=== PATIENT | male | born 1980 | race Two or more races ===

== ENCOUNTER 2017-12-01 18:22 | Emergency (ER) | payer OTHER ==
[~2017-12-01] VITALS: Ht 175.3 cm; Wt 83.0 kg
[2017-12-01 18:28] VITALS: BP 148/98
== END 2017-12-01 20:34 | disposition home or self-care (01) ==
LOC: ED 20:28
DX: F32.9 Major depressive disorder, single episode, unspecified (principal); Z90.89 Acquired absence of other organs; Z88.0 Allergy status to penicillin; Z88.2 Allergy status to sulfonamides
CPT/HCPCS: 99284